=== PATIENT | male | born 1955 | race Caucasian/White ===

== ENCOUNTER 2025-06-23 11:43 | Emergency (ER) | payer OTHER, SELFPAY ==
[2025-06-23 11:49] VITALS: BP 145/85; BMI 33.7
[2025-06-23] MEDS: TORADOL 30 MG IM (12:43)
--- NOTE | 2025-06-23 14:07 | ED.GENMED ---
History of Present Illness
General
Chief Complaint: Musculo-Skeletal Complaint
Source: patient
Exam Limitations: none
Time Seen by Provider: 06/23/25 11:55
Nursing documentation reviewed up to this point in time: agreed with
History of Present Illness
History of Present Illness:
see MDM
Past History
Past History
ED Past Medical History: GERD and HTN
Social History
Tobacco: Non-smoker
Alcohol: None
Review of Systems
Review of Systems
Allergies reviewed?: Yes
All Other Systems: Not applicable
Phy Exam
Physical Exam
Physical Exam:
GENERAL: Alert , in no apparent distress, comfortable at rest
HEAD: NCAT
NECK: no midline tenderness, active ROM intact, no paraspinal muscle tenderness;
CARDIAC: Regular rate and rhythm, no edema
LUNGS: Clear breath sounds bilaterally, no acute respiratory distress, no wheezes/rales/rhonchi
ABDOMEN: Soft, without focal tenderness, no r/g, no cvat, normal bowel sounds, nondistended
NEUROLOGICAL: Alert and oriented, no focal neuro deficits, CN intact, 5/5 strength, sensation intact, ambulation slight limp left leg
SKIN: Warm and dry, no rashes
MUSCULOSKELETAL: No edema, well perfused. Normal inspection of the RIGHT hip, RIGHT leg
Patient has no tenderness to palpation of the hip, minimal tenderness in the SI joint
He has no pain with flexion of the RIGHT hip, external rotation, but with internal rotation has discomfort
hamstring is not tender
able to extend his knee with hip flexed;
ambulating fairly well, mild
Back: No midline tenderness, no swelling
negative straight leg raise Bilaterally
PSYCH: Normal and appropriate interaction.
Course
Orders/Labs/Results
Orders:
Orders
06/23/25 12:34
Ketorolac [Toradol] 30 mg IV NOW STA
Hip, Right 2-3 Views [CR Hip - RT w/wo Pel 2-3 Vw*] Urgent
Comment:
Reason For Exam: right sided pain,.imp
Include a pelvis x-ray?: Yes
Lumbar Spine Complete, 4 View [CR Lumbar Spine Comp Min 4 Vw*] Urgent
Comment:
Reason For Exam: roight sciatica
Venous Doppler Lwr Ext Rt [US Periph Venous LOWER Ext RT] Urgent
Comment:
Reason For Exam: right posterior thigh pain
06/23/25 12:37
Ketorolac [Toradol] 30 mg IM NOW STA
06/23/25 14:18
Prednisone [Deltasone] 50 mg PO NOW STA
Vital Signs
Initial and Last Documented VS:
Initial Vital Signs
Temp Pulse Resp Pulse Ox
36.6 C 70 16 98
06/23/25 11:45 06/23/25 11:45 06/23/25 11:45 06/23/25 11:45
Last Documented Vital Signs
Temp Pulse Resp BP Pulse Ox
36.6 C 101 20 152/83 97
06/23/25 14:21 06/23/25 14:21 06/23/25 14:21 06/23/25 14:21 06/23/25 14:21
MDM/Problems Addressed
Differential Diagnosis Includes:
see MDM
MDM/Problems Addressed:
Note:
CHIEF COMPLAINT(S)
Right leg pain extending from the buttocks to the knee.
HISTORY OF PRESENT ILLNESS
The patient is a 70-year-old male presenting with right leg pain that began yesterday. The patient reports that the pain started after driving to a car show, during which he noticed discomfort in his leg approximately three-quarters of the way
there. The drive is approximately one hour [address]. The pain is primarily located from the buttocks down to the knee and is described as a tightness or muscle spasm sensation. The patient denies any numbness or significant back pain but reports a
sensation of worsening discomfort when standing up straight and improvement when bending forward. He has a history of a similar incident a few years ago, though it resolved spontaneously without medical intervention. The patient has not had sciatica
diagnosed previously. No falls or acute injuries were reported. Pain was rated at a 5 to 6 out of 10 while at rest, increasing to 7 to 8 out of 10 with standing or walking. The patient took ibuprofen yesterday with minimal relief. He denies urinary
or fecal incontinence and reports painful defecation without accompanying abdominal or back pain. The patient occasionally experiences the consumption of alcohol, having a couple of drinks every few weeks.
PAST MEDICAL AND SURIGICAL HISTORY
1. Hypertension
2. Dizziness for which he takes metolazone
CHRONIC MEDICAL CONDITIONS SIGNIFICANTLY AFFECTING CARE
The patient reports hypertension, which he manages with medication. He also takes medication for episodes of dizziness.
SOCIAL HISTORY
The patient reports infrequent alcohol consumption, describing the intake of a few beers or glasses of wine on an occasional basis. He denies regular alcohol use.
REVIEW OF SYSTEMS
- Musculoskeletal: Reports cramping and twitching pain from the buttocks to knee on the right side.
- Neurological: Denies numbness or radiation of the pain down the leg.
- Gastrointestinal: Reports painful bowel movements, but denies abdominal pain.
- Genitourinary: Denies urinary incontinence.
PHYSICAL EXAM
- Musculoskeletal: Pain on the right leg from the buttocks to the knee with certain movements; improvement with bending.
- Nursing notes reviewed and vital signs reviewed.
PLAN
1. Perform imaging of the back to assess for underlying issues contributing to the leg pain.
2. Ultrasound of the leg to evaluate for potential deep vein thrombosis or other abnormalities.
3. Consider providing an injection of a medication similar to ibuprofen but more effective for muscle pain and inflammation.
DIFFERENTIAL DIAGNOSIS
The Differential Diagnosis includes, in no particular order and is not limited to:
1. Sciatica
2. Lumbar radiculopathy
3. Muscle strain
4. Deep vein thrombosis
5. Peripheral neuropathy
6. Spinal stenosis
7. Piriformis syndrome
8. Osteoarthritis
9. Lumbar disc herniation
10. Sacroiliac joint dysfunction
06/23/25 - 14:29
Patients x-ray of the hips appears normal; however, there is noted degeneration throughout the spine, especially at the L5-S1 level, which may be contributing to nerve compression and related symptoms such as pain radiating down the thigh. Initiated
a course of steroids to reduce inflammation and address the nerve pain, with the first dose administered during the visit and additional doses prescribed once daily for the next four days. Advised patient to also take Tylenol every six hours for
pain management. Recommended follow-up with an party supply specialist if symptoms persist, with a potential MRI to further assess possible nerve compression or spinal narrowing. Encouraged patient to monitor for worsening symptoms such as increased
pain, numbness, leg weakness, or fever, advising immediate medical attention if these occur. Suggest application of heat for symptomatic relief, as patient reported some benefit from using a heating pad.
*Pulse Oximetry
SaO2: 98
Oxygen Mode of Delivery: Room air
Patient hypoxic: no (97)
*Critical Care Note
Total Time (30-74mins, 75-104mins- exclusive of procedures): Not Applicable
ED Attending Note
-
Portions of this chart may have been created with voice recognition software.� Occasional wrong word or��sound alike� substitutions may have occurred due to the inherent limitations of voice recognition software.
Discharge Plan
Departure
Patient Disposition: Home (Routine Discharge)
Date of Disposition: 06/23/25
Time of Disposition: 14:21
Patient with high blood pressure during this ER visit?: Yes
Condition: Fair
Covid-19: Not Applicable
Discharge Problem:
Acute leg pain
Instructions: Muscle Strain (DC), Muscle and Bone Pain (DC), BLOOD PRESSURE
Prescriptions:
New
prednisone 50 mg tablet
50 mg PO DAILY Qty: 4 0RF
No Action
gentamicin 0.3 % drops
1 drp ophthalmic (eye) Q4H 5 Days Qty: 5 0RF
Referrals:
Joseph Alfaro MD [Family Provider, Family Practice] - Follow up in 2-3 days
Activity Restrictions/Additional Instructions:
YOUR PAIN MAY BE COMING FROM YOUR BACK/SCIATICA FROM A PINCHED NERVE THAT IS CAUSING PAIN TO RADIATE
OR THIS COULD BE MUSCULAR
EITHER WAY YOU CAN TRY TYLENOL AN DMOTRIN FOR PAIN
TAKE PREDNISONE ONCE A DAY FOR 4 DAYS STARTING TOMORROW
HEAT ON YOUR THIGH
RETURN TO THE ER FOR ANY SWELLING, WEAKNESS, NU,MBNESS, INABILITY TO WALK OR ANY CONCERNS.
Interventions
Interventions:
*Risk Screen - Suicide Last Done: 06/23/25 11:45
*General Assessment Last Done: 06/23/25 11:45
*Neglect/Abuse Screening Last Done: 06/23/25 11:45
*ED- Fall Risk Assessment Last Done: 06/23/25 11:45
*ED COVID-19 Vaccine History Last Done: 06/23/25 11:45
*Nursing Disposition Last Done: 06/23/25 15:03
ED-Musculoskeletal Assessment Last Done: 06/23/25 11:45
Discharge Date and Time
Discharge Date/Time: 06/23/25 15:04
Print Language: QATARI
[2025-06-23 14:21] VITALS: BP 152/83
[2025-06-23] MEDS: DELTASONE 50 MG PO (14:45)
== END 2025-06-23 15:04 | disposition home or self-care (01) ==
LOC: EMR 11:43
PROVIDERS: EMERGENCY PHYSICIAN Emergency Medicine; FAMILY PHYSICIAN Family Medicine
DX: M79.604 Pain in right leg (principal); I10 Essential (primary) hypertension
CPT/HCPCS: 96372; 99284; 72110; 73502; 93971